=== PATIENT | female | born 1970 | race Two or more races ===

== ENCOUNTER → 2019-03-02 | Outpatient (CLI) | payer OTHER ==
[2019-03-02 14:18] LABS: BASOPHIL % 0.7 % (0-2); PLATELET COUNT 252 x10^3mcL (130-400); RED CELL DISTRIBUTION WIDTH 12.6 % (11.5-14.5)
[2019-03-02 14:22] LABS: ALKALINE PHOSPHATASE 60 U/L (46-116); ALT/SGPT 25 U/L (14-59); AST/SGOT 11 U/L (15-37); BILIRUBIN TOTAL 0.4 mg/dL (0.20-1.00); CALCIUM 8.6 mg/dL (8.5-10.1); CARBON DIOXIDE 24.4 mmol/L (21-32); CHLORIDE SERUM 109 mmol/L (98-107); CREATININE SERUM 0.7 mg/dL (0.6-1.0); GFR1 > 60 mL/min; GLUCOSE SERUM 109 mg/dL (74-106); POTASSIUM SERUM 3.5 mmol/L (3.5-5.1); SODIUM SERUM 144 mmol/L (136-145); T4(THYROXINE) 10.6 ug/dL (4.7-13.3)
[2019-03-02 14:26] LABS: ALBUMIN 3.3 g/dL (3.4-5.0)
[2019-03-02 14:44] LABS: TOTAL PROTEIN, SERUM 7.7 g/dL (6.4-8.2)
== END | disposition home or self-care (01) ==
LOC: RD 13:34
PROC: BW4GZZZ Ultrasonography of Pelvic Region (ICD-10-PCS; principal; 2019-03-02)
DX: N93.0 Postcoital and contact bleeding (principal); N95.1 Menopausal and female climacteric states
CPT/HCPCS: 82670; 84402; 84403; 86376

== ENCOUNTER 2019-11-22 06:33 | Day surgery (SDC) | payer OTHER ==
[~2019-11-22] VITALS: Ht 167.6 cm; Wt 81.6 kg
[2019-11-22 06:59] VITALS: BP 125/80
[2019-11-22 10:03] VITALS: BP 135/70
== END 2019-11-22 09:55 | disposition home or self-care (01) ==
LOC: DS 06:33 → GI 07:30 → OR 07:30 → DS 09:55
PROVIDERS: ATTEND Internal Medicine
DX: Z12.11 Encounter for screening for malignant neoplasm of colon (principal); D12.3 Benign neoplasm of transverse colon; D12.5 Benign neoplasm of sigmoid colon; K30 Functional dyspepsia; K29.50 Unspecified chronic gastritis without bleeding; F32.9 Major depressive disorder, single episode, unspecified; Z88.0 Allergy status to penicillin; Z20.828 Contact with and (suspected) exposure to other viral communicable diseases; Z79.82 Long term (current) use of aspirin; Z98.51 Tubal ligation status; Z90.49 Acquired absence of other specified parts of digestive tract
CPT/HCPCS: 43235; 45378; 99153; J1200; J1610; J2250; J2310; J3010; J3490; U0003-CS

== ENCOUNTER 2019-12-14 08:57 | Emergency (ER) | payer OTHER ==
[~2019-12-14] VITALS: Ht 167.6 cm; Wt 80.7 kg
[2019-12-14 09:14] VITALS: Ht 167.6 cm; Wt 80.7 kg
[2019-12-14 09:52] LABS: PLATELET COUNT 246 x10^3mcL (130-400); RED CELL DISTRIBUTION WIDTH 13.8 % (11.5-14.5)
[2019-12-14 09:54] LABS: UA SPECIFIC GRAVITY >=1.030 (1.005-1.035); microscopic required? YES; urine erythrocyte NEGATIVE (NEGATIVE)
[2019-12-14 10:20] LABS: CALCIUM 8.8 mg/dL (8.5-10.1); CARBON DIOXIDE 26.2 mmol/L (21-32); CHLORIDE SERUM 104 mmol/L (98-107); CREATININE SERUM 0.8 mg/dL (0.6-1.0); GFR1 > 60 mL/min; GLUCOSE SERUM 125 mg/dL (74-106); POTASSIUM SERUM 3.6 mmol/L (3.5-5.1); SODIUM SERUM 137 mmol/L (136-145)
[2019-12-14 10:25] LABS: ALBUMIN 3.7 g/dL (3.4-5.0); ALKALINE PHOSPHATASE 83 U/L (46-116); ALT/SGPT 56 U/L (14-59); AST/SGOT 33 U/L (15-37); BILIRUBIN TOTAL 0.4 mg/dL (0.20-1.00); TOTAL PROTEIN, SERUM 8.2 g/dL (6.4-8.2)
[2019-12-14 11:37] LABS: MONOCYTE 8 % (0-7); SEGMENTED NEUTROPHILS 40 % (37-75)
[2019-12-14 11:38] LABS: rbc morphology (normal/abnorm) NORMAL (NORMAL)
[2019-12-14 15:44] VITALS: BP 111/64
== END 2019-12-14 15:44 | disposition home or self-care (01) ==
LOC: ED 08:57
PROVIDERS: Specialist
DX: M54.5 Low back pain (principal); R10.9 Unspecified abdominal pain
CPT/HCPCS: J1885; Q0162

== ENCOUNTER → 2019-12-26 | Outpatient (CLI) | payer OTHER | END | disposition home or self-care (01) | LOC: MI 09:40 | PROVIDERS: ATTEND Internal Medicine | PROC: BW30ZZZ Magnetic Resonance Imaging (MRI) of Abdomen (ICD-10-PCS; principal; 2019-12-26) | DX: R10.9 Unspecified abdominal pain (principal) | CPT/HCPCS: 74181 ==

== ENCOUNTER → 2020-01-23 | Outpatient (CLI) | payer OTHER ==
[2020-01-23 09:48] LABS: BASOPHIL % 0.6 % (0-2); PLATELET COUNT 294 x10^3mcL (130-400); RED CELL DISTRIBUTION WIDTH 14.2 % (11.5-14.5)
== END | disposition home or self-care (01) ==
LOC: LB 09:06
PROVIDERS: ATTEND Internal Medicine
DX: D72.819 Decreased white blood cell count, unspecified (principal)

== ENCOUNTER → 2020-01-24 | Outpatient (CLI) | payer OTHER | END | disposition home or self-care (01) | LOC: US 11:02 | PROVIDERS: ATTEND Internal Medicine | PROC: B44HZZZ Ultrasonography of Bilateral Lower Extremity Arteries (ICD-10-PCS; principal; 2020-01-24) | DX: I73.9 Peripheral vascular disease, unspecified (principal) ==

== ENCOUNTER → 2020-02-06 | Outpatient (CLI) | payer OTHER | END | disposition home or self-care (01) | LOC: US 09:15 | PROVIDERS: ATTEND Urology | PROC: BT4JZZZ Ultrasonography of Kidneys and Bladder (ICD-10-PCS; principal; 2020-02-06) | DX: N28.1 Cyst of kidney, acquired (principal) ==

== ENCOUNTER → 2020-02-21 | Outpatient (CLI) | payer OTHER | END | disposition home or self-care (01) | LOC: LB 13:31 | PROVIDERS: ATTEND Obstetrics & Gynecology | DX: R30.9 Painful micturition, unspecified (principal) ==

== ENCOUNTER → 2020-03-05 | Outpatient (CLI) | payer OTHER ==
[2020-03-05 10:07] LABS: PLATELET COUNT 332 x10^3mcL (130-400); RED CELL DISTRIBUTION WIDTH 13.1 % (11.5-14.5)
[2020-03-05 10:12] LABS: BASOPHIL % 3.1 % (0-2)
[2020-03-05 10:22] LABS: ALBUMIN 3.8 g/dL (3.4-5.0); ALKALINE PHOSPHATASE 102 U/L (46-116); ALT/SGPT 30 U/L (14-59); AST/SGOT 8 U/L (15-37); BILIRUBIN TOTAL 0.74 mg/dL (0.20-1.00); CALCIUM 9.5 mg/dL (8.5-10.1); CARBON DIOXIDE 28.4 mmol/L (21-32); CHLORIDE SERUM 104 mmol/L (98-107); CREATININE SERUM 0.7 mg/dL (0.6-1.0); GFR1 > 60 mL/min; GLUCOSE SERUM 103 mg/dL (74-106); POTASSIUM SERUM 3.8 mmol/L (3.5-5.1); SODIUM SERUM 142 mmol/L (136-145)
[2020-03-05 10:23] LABS: TOTAL PROTEIN, SERUM 8.3 g/dL (6.4-8.2)
[2020-03-05 10:32] LABS: FREE T4 1.04 ng/dL (0.76-1.46); FREE THYROXINE INDEX 3.4 ug/dL (1.4-4.5); T4(THYROXINE) 10.5 ug/dL (4.7-13.3)
[2020-03-05 12:34] LABS: T3 TOTAL 1.27 ng/mL
== END | disposition home or self-care (01) ==
LOC: LB 09:14
PROVIDERS: ATTEND Obstetrics & Gynecology
DX: N95.1 Menopausal and female climacteric states (principal); L63.9 Alopecia areata, unspecified
CPT/HCPCS: 82627; 82670; 84402; 84403; 84439; 86376

== ENCOUNTER → 2020-03-26 | Outpatient (CLI) | payer OTHER ==
[2020-03-26 18:49] LABS: PLATELET COUNT 286 x10^3mcL (179-408); RED CELL DISTRIBUTION WIDTH 13.4 % (12.3-17.7)
[2020-03-26 18:59] LABS: IRON 74 ug/dL (50-170); TOTAL IRON BINDING CAPACITY 401 ug/dL (250-450)
[2020-03-26 19:02] LABS: ALBUMIN 3.8 g/dL (3.4-5.0); ALKALINE PHOSPHATASE 108 U/L (46-116); ALT/SGPT 38 U/L (14-59); AST/SGOT 22 U/L (15-37); BILIRUBIN TOTAL 0.61 mg/dL (0.20-1.00); CALCIUM 9.2 mg/dL (8.5-10.1); CARBON DIOXIDE 29.8 mmol/L (21-32); CHLORIDE SERUM 101 mmol/L (98-107); CREATININE SERUM 0.9 mg/dL (0.6-1.0); GFR1 > 60 mL/min; GLUCOSE SERUM 86 mg/dL (74-106); POTASSIUM SERUM 3.5 mmol/L (3.5-5.1); SODIUM SERUM 140 mmol/L (136-145)
[2020-03-26 19:03] LABS: TOTAL PROTEIN, SERUM 8.4 g/dL (6.4-8.2)
== END ==
LOC: LB 13:35
DX: D72.819 Decreased white blood cell count, unspecified (principal)

== ENCOUNTER → 2020-04-27 | Outpatient (CLI) | payer OTHER | END | disposition home or self-care (01) | LOC: LB 10:17 | PROVIDERS: ATTEND Internal Medicine | DX: K21.9 Gastro-esophageal reflux disease without esophagitis (principal); K29.00 Acute gastritis without bleeding; B96.81 Helicobacter pylori [H. pylori] as the cause of diseases classified elsewhere | CPT/HCPCS: 87338 ==

== ENCOUNTER → 2020-05-27 | Outpatient (CLI) | payer OTHER ==
[2020-05-27 10:22] LABS: BASOPHIL % 1.2 % (0.2-1.3); PLATELET COUNT 264 x10^3mcL (179-408); RED CELL DISTRIBUTION WIDTH 13.8 % (12.3-17.7)
== END | disposition home or self-care (01) ==
LOC: RD 09:05
PROVIDERS: ATTEND Internal Medicine
DX: D70.9 Neutropenia, unspecified (principal)
CPT/HCPCS: 83883